=== PATIENT | female | born 1950 | race Caucasian/White ===

== ENCOUNTER 2024-07-27 06:47 | Day surgery (SDC) | payer OTHER, SELFPAY ==
[2024-07-19 08:51] LABS: Hematocrit 41.6 % (37.0-47.0); Hemoglobin 13.2 g/dL (12.0-16.0); Mean Corp Hgb Conc. 31.7 g/dL (33.0-37.0); Mean Corpuscular Hgb 29.2 pg (27.0-31.0); Mean Platelet Volume 9.8 fL (7.4-10.4); Platelet Count 163 10^3/uL (130-400); Red Blood Cell Count 4.52 10^6/uL (4.20-5.40); Red Cell Dist. Width 13.5 % (11.5-14.5)
[2024-07-19 09:25] LABS: Blood Urea Nitrogen 23 mg/dl (7-17); Calcium 9.8 mg/dl (8.4-10.2); Carbon Dioxide 25 mmol/L (22-30); Chloride 108 mmol/L (98-107); Glucose 86 mg/dl (70-99); Sodium 141 mmol/L (135-145); eGFR > 60.00
[2024-07-20 12:28] VITALS: BMI 33.1
[2024-07-27] VITALS (17 sets, daily range): BP systolic 79–130; BP diastolic 52–95; BMI 33.1; BMI 34.5
[2024-07-27] MEDS: NORMOSOL-R/PLASMALYTE-A 1000 IV ×2 (09:41→17:08)
[2024-07-27] MEDS: Pyridium 200 MG PO (09:41)
[2024-07-27] MEDS: HEPARIN 5000 UNITS SC (09:41)
--- NOTE | 2024-07-27 12:06 | PTCARENOTE ---
Dr. Munson was into to see and speak with the patient and her spouse. RN went in afterwards. Patient and her spouse are upset that they have been waiting this long to go into surgery. RN thanked them both for their continued patience. Bathroom
break and warm blankets were offered. Patient declined at this time. SDS manager integrated made aware.
[2024-07-27 17:11] LABS: % Basophils 0.3 % (0-2); % Eosinophils 0.2 % (0-6); % Immature Granulocytes 0.5 % (0-0.5); % Lymphocytes 9.9 % (20.5-51.1); % Monocytes 1.6 % (1.7-9.3); % Neutrophils 87.5 % (42.2-75.2); Absolute Immature Granulocytes 0.1 10^3/uL (0-0.05); Absolute Lymphocytes 1.1 10^3/uL (1.2-3.4); Absolute Monocytes 0.2 10^3/uL (0.1-0.6); Absolute Neutrophils 9.4 10^3/uL (1.4-6.5); Hematocrit 38.1 % (37.0-47.0); Hemoglobin 12.2 g/dL (12.0-16.0); Mean Corpuscular Hgb 29.1 pg (27.0-31.0); Mean Corpuscular Volume 90.9 fL (81.0-99.0); Mean Platelet Volume 9.9 fL (7.4-10.4); Nucleated Red Blood Cells % 0 %; Platelet Count 149 10^3/uL (130-400); Red Blood Cell Count 4.19 10^6/uL (4.20-5.40); Red Cell Dist. Width 13.9 % (11.5-14.5); White Blood Cell Count 10.8 10^3/uL (4.8-10.8)
[2024-07-27] MEDS: DILAUDID 0.25 MG IV (17:11)
[2024-07-27] MEDS: LOVENOX 40 MG SC (18:19)
--- NOTE | 2024-07-27 18:25 | PTCARENOTE ---
pt admitted from PACU AOx3 [place]. LCTA B/L on 2L 02. abd tender incisions on upper abd and above pubis all well approximated with surgical adhesive. vaginal packing and tiffanie pad present small amount of bloody drainage, viewed with RN CIRCULATING. abd round
obese. 16F reyes draining orange clear urine. skin is otherwise intact, +PP B/L IV right wrist. CB in reach pt instructed to use. VSS
[2024-07-27] MEDS: COLACE 100 MG PO (19:39)
[2024-07-27] MEDS: ROXICODONE 5 MG PO (22:20)
[2024-07-28] MEDS: NORMOSOL-R/PLASMALYTE-A 1000 IV (01:06)
[2024-07-28 03:00] VITALS: BP 111/71
--- NOTE | 2024-07-28 06:34 | PTCARENOTE ---
Bustillos removed at 0615 DTV by 1215 today.
[2024-07-28 07:00] VITALS: BP 106/68
[2024-07-28] MEDS: COLACE 100 MG PO (07:12)
[2024-07-28] MEDS: ROXICODONE 10 MG PO (07:12)
--- NOTE | 2024-07-28 07:15 | PTCARENOTE ---
pt c/o 02/25 headache, feels it is related to lack of sleep, 02 and not getting her regular 'headache' medications. PRN Oxy 10mg administered. pt weaned to RA 93%.
[2024-07-28 07:39] LABS: Hemoglobin 11.8 g/dL (12.0-16.0); Mean Corp Hgb Conc. 32.8 g/dL (33.0-37.0); Mean Corpuscular Hgb 29.4 pg (27.0-31.0); Mean Corpuscular Volume 89.6 fL (81.0-99.0); Mean Platelet Volume 10.4 fL (7.4-10.4); Platelet Count 162 10^3/uL (130-400); Red Blood Cell Count 4.02 10^6/uL (4.20-5.40); Red Cell Dist. Width 13.9 % (11.5-14.5); White Blood Cell Count 10.7 10^3/uL (4.8-10.8)
--- NOTE | 2024-07-28 07:54 | W.PN.GYN ---
Today's Communication / Plan
-
trail of void, ambulate, wean O2 with goal SPO2 >94% on room air
Physician Note
-
S:
Patient is a 74yoF PMH HTN, HLD, chronic headaches, pelvic organ prolapse, currently POD1 sp Robotic assisted supracervical hysterectomy and bilateral
salpingo-oophorectomy, Robotic assisted sacrocolpopexy, Posterior colporrhaphy, Retropubic midurethral sling Cystoscopy on 07/27. She was admitted for monitoring due to postop hypoxia and hypotension.
Patient was evaluated on AM rounds. Patient had ambulated to bathroom and voided this am reporting bloody urine output. Denies having difficulty voiding. Denies BM or passing flatus but feels like she will have one after breakfast. She is pending to
eat but has been tolerating po intake. Incisional pain is controlled. Patient had experienced SOB yesterday needing supplemental O2. The O2 was removed this morning and she denies feeling SOB at this time. Per RN patient developed transient
dizziness upon standing up first time today. It resolved after sitting down. Patient denies SOB, chest pain, nausea/vomiting.
O
Vital Signs
Temp Pulse Resp BP Pulse Ox
98.5 F 100 16 106/68 95
07/28/24 07:00 07/28/24 07:00 07/28/24 07:00 07/28/24 07:00 07/28/24 07:00
Intake and Output
07/27/24 07/28/24 07/29/24
06:59 06:59 06:59
Intake Total 2660 / 2660
Output Total 1550 / 1550
Balance 1110 / 1110
Intake:
Oral fluids 960 / 960
IV fluids (Total) 1700 / 1700
Normosol 200 / 200
Output:
Urine, Bustillos 1550 / 1550
Laboratory Results
07/28/24 06:30
07/28/24 06:30
GA: Well appearing female in NAD
HEENT: normocephalic, EOMI
Resp: unlabored breathing on room air, speaking in full sentences without pause
Abd: obese, soft, nondistended, mild tenderness around incisions, incisions intact and dry covered with dermabond
: suprapubic incisions surrrounded by 8cm area of ecchymosis, no palpable hematoma, minimal vaginal bleeding noted around incisions. Urine output in toilet is clear and blood tinged.
Ext: negative LE edema
A/P
74yoF PMH HTN, HLD, chronic headaches, pelvic organ prolapse, currently POD1 sp Robotic assisted supracervical hysterectomy and bilateral
salpingo-oophorectomy, Robotic assisted sacrocolpopexy, Posterior colporrhaphy, Retropubic midurethral sling Cystoscopy on 07/27. Patient had weaned off O2 and is recovering appropriately. H/H and Cr WNL.
- Followup trial of void
- Ambulate with assistance
- Continue to monitor SPO2 off room air; add supplemental O2 as needed
- Continue incentive spirometry 10 times an hr
- Tylenol/ibuprofen prn for mild/moderate pain; roxicodone prn severe pain
- Restart home medications
- Regular diet
- May discontinue IVF
- DVT prophylaxis is lovenox and SCDs
- Apply pad to vagina to collect expected minimal postop incisional bleeding
- Likely discharge home if tolerating breakfast, ambulating without O2 or assistance
[2024-07-28 08:08] LABS: Blood Urea Nitrogen 12 mg/dl (7-17); Carbon Dioxide 21 mmol/L (22-30); Chloride 108 mmol/L (98-107); Estimated Creatinine Clearance 68 ml/min; Sodium 139 mmol/L (135-145)
[2024-07-28] MEDS: NORMOSOL-R/PLASMALYTE-A IV (08:45)
[2024-07-28 08:55] LABS: Hepatitis C Antibody Negative (Negative)
--- NOTE | 2024-07-28 11:03 | CM ---
Addendum entered by Radha Muñoz 07/28/24 11:07:
Given Advanced Directive Information packet
Original Note:
Met with pt/ at bedside
Pt reports she lives with her in a ranch style home; 3 steps to enter
Independent at baseline, drives
DME - rolling walker, shower chair
SNF - denies past hx
HH - [facility] in past
Has ride at d/c
PCP - Christophe Catalan
Pharm - [facility]
Plan - anticipate home no needs
[2024-07-28 11:07] VITALS: BP 114/65
== END 2024-07-28 12:38 | disposition home or self-care (01) ==
LOC: SDS 06:47
PROVIDERS: ATTENDING PHYSICIAN Obstetrics & Gynecology; FAMILY PHYSICIAN Family Medicine
DX: N81.4 Uterovaginal prolapse, unspecified (principal); N39.3 Stress incontinence (female) (male); N95.8 Other specified menopausal and perimenopausal disorders; N36.41 Hypermobility of urethra
CPT/HCPCS: 57425; 58542; 57250; 57288; 88305; 88311; 80048; 80051; 82565; 84520; 85025; 85027; 86803; 86850; 86900; 86901; 87070; 93005; C1713; C1763; C1771

== ENCOUNTER 2024-10-22 15:28 | Emergency (ER) | payer OTHER, SELFPAY ==
[2024-10-22 15:40] VITALS: BP 107/68
[2024-10-22] MEDS: TORADOL 30 MG IM (16:48)
[2024-10-22] MEDS: VALIUM 5 MG PO (16:49)
--- NOTE | 2024-10-22 16:58 | ED.MUSCINJ ---
HPI-Injury
General
Chief Complaint: Fall
Source: patient
Exam Limitations: none
Time Seen by Provider: 10/22/24 16:29
History of Present Illness-Injury
Initial Injury comments:
74-year-old female presents complaining of lower back pain after fall she sustained today. She lost her balance in the driveway and fell backwards. Most of her pain is in the lower back is made worse with motion but she does get some pain in the
mid back with breathing. She also notes pain of her sacrum. No numbness or bowel or bladder dysfunction. No other complaints at this time
Past History
Past History
ED Past Medical History: Fibromyalgia, Hypercholesterolemia and Other (Chronic low back pain, narcotic dependent; vertigo)
ED Past Surgical History: Orthopedic (Left total knee replacement, right wrist fracture)
Social History
Tobacco: Non-smoker
Alcohol: Occasional (Rare alcohol use)
Personal:
Living: with family
Employment: Retired
Family History
Family History: Other (Noncontributory)
Phy Exam
Physical Exam
Physical Exam:
General: Well-appearing female no acute respiratory distress
HEENT normocephalic atraumatic
Heart: Regular rate and rhythm
Lungs: Clear no wheeze
Musculoskeletal exam: There is tenderness over the lumbar spine diffusely and as well as the sacrum and slightly over the lower thoracic spine.
Skin is intact
Neurologic exam: Alert and oriented good strength to the lower extremities
Injury Course
Orders/Labs/Results
Orders:
Orders
10/22/24 15:43
CR Lumbar Spine Comp Min 4 Vw* Urgent
Comment:
Reason For Exam: fall, injury
10/22/24 16:40
CR Chest - 2 Views Urgent
Comment:
Reason For Exam: fall
CR Sacrum/coccyx Min 2 View Urgent
Comment:
Reason For Exam: fall
10/22/24 16:41
Diazepam [Valium] 5 mg PO NOW STA
Ketorolac [Toradol] 30 mg IM NOW STA
MDM/Problems Addressed
Differential Diagnosis Includes:
Back pain after a mechanical fall. Consider fracture versus lumbar strain. No red flags to suggest cauda equina. X-rays of lumbar spine were ordered through triage which were negative for acute traumatic injury. There is degenerative changes. I
added x-rays of the chest and sacrum as well
*Critical Care Note
Total Time (30-74mins, 75-104mins- exclusive of procedures): Not Applicable
Update Note
Update Note:
X-rays of the chest and sacrum were added and reviewed and are negative for acute finding. I suspect lumbar strain. Recommended medication for discomfort and stable for discharge
ED Attending Note
-
Portions of this chart may have been created with voice recognition software.� Occasional wrong word or��sound alike� substitutions may have occurred due to the inherent limitations of voice recognition software.
Discharge Plan
Departure
Patient Disposition: Home (Routine Discharge)
Date of Disposition: 10/22/24
Time of Disposition: 18:44
Patient with high blood pressure during this ER visit?: No
Discharge Problem:
Lumbar strain
Instructions: Back Pain
Prescriptions:
New
cyclobenzaprine 10 mg tablet
10 mg PO TID PRN (Reason: spasm) Qty: 10 0RF
No Action
cyclobenzaprine 10 MG tablet
10 mg PO HS
lisinopril 20 mg Tablet
20 mg PO DAILY
topiramate 100 mg Tablet
100 mg PO HS
rosuvastatin 10 mg Tablet
10 mg PO DAILY
duloxetine 60 mg Capsule,Delayed Release(Dr/Ec)
60 mg PO DAILY
activated charcoal 200 mg Capsule
1,000 mg PO NOON
cholecalciferol (vitamin D3) [Vitamin D3] 50 mcg (2,000 unit) Capsule
50 mcg PO DAILY
Doctor's Preferred Daily5
3 cap PO DAILY
hydrocodone-acetaminophen 10-325 mg Tablet
1 tab PO Q4H
famotidine 20 mg Tablet
20 mg PO BID
Referrals:
Christophe Catalan DO [Family Provider, Family Practice]
Activity Restrictions/Additional Instructions:
Use warm compresses to the area. Continue with your hydrocodone for pain. Use muscle relaxer as needed for spasm. Return if worse otherwise follow-up with your back pain specialist
Interventions
Interventions:
*Risk Screen - Suicide Last Done: 10/22/24 15:43
*General Assessment Last Done: 10/22/24 15:43
*Neglect/Abuse Screening Last Done: 10/22/24 15:43
*ED COVID-19 Vaccine History Last Done: 10/22/24 15:43
ED-Musculoskeletal Assessment Last Done: 10/22/24 16:45
ED- Neurological Assessment Last Done: 10/22/24 16:45
ED-Skin Assessment Last Done: 10/22/24 16:45
Discharge Date and Time
Print Language: HEBREW
== END 2024-10-22 19:37 | disposition home or self-care (01) ==
LOC: EMR 15:28
PROVIDERS: EMERGENCY PHYSICIAN Emergency Medicine; FAMILY PHYSICIAN Family Medicine
DX: S39.012A Strain of muscle, fascia and tendon of lower back, initial encounter (principal); W18.39XA Other fall on same level, initial encounter; E78.00 Pure hypercholesterolemia, unspecified; G89.29 Other chronic pain; M79.7 Fibromyalgia
CPT/HCPCS: 96372; 99284; 71046; 72110; 72220